=== PATIENT | male | born 1955 | race Caucasian/White ===

== ENCOUNTER 2020-03-22 14:08 | Outpatient (CLI) | payer BC, SELFPAY ==
[2020-03-23 02:12] LABS: SARS-CoV-2 RNA PCR Positive
== END 2020-03-22 14:09 | disposition home or self-care (01) ==
PROVIDERS: PCP Internal Medicine; Visit Provider Internal Medicine
DX: U07.1 COVID-19 (principal)
CPT/HCPCS: 87635; C9803; U0003